=== PATIENT | female | born 1995 | race Caucasian/White ===

== ENCOUNTER 2017-01-06 09:53 | Emergency (ER) | payer OTHER ==
[~2017-01-06] VITALS: Ht 165.1 cm; Wt 65.3 kg
[~2017-01-06 09:53] MED LIST: ADDERALL 10 MG10 MG PO; AUGMENTIN 500-1 EACH PO; IBUPROFEN 600600 M1 PO; LAMICTAL XR25 MG; NOHOMEMEDICATIONS; ORAL CONTRACEPTIVE; WELLBUTRIN 75 M75 M1; ZIPRASIDONE HCL20 M1 PO
[2017-01-06 09:54] VITALS: BP 123/80
[2017-01-06] MEDS ORDERED: TRINATE TABLET1 TAB PO (09:58)
[2017-01-06] MEDS ORDERED: PHENERGAN 25 MG25 M1 PO (10:05)
[2017-01-06] MEDS ORDERED: REGLAN 10 MG TA10 MG PO (17:28)
[2017-01-06] MEDS ORDERED: APAP500 PO (17:28)
== END 2017-01-06 10:37 | disposition home or self-care (01) ==
LOC: ER 09:53
DX: G43.909 Migraine, unspecified, not intractable, without status migrainosus (principal); O26.891 Other specified pregnancy related conditions, first trimester; Z3A.08 8 weeks gestation of pregnancy

== ENCOUNTER 2017-01-06 15:35 | Emergency (ER) | payer OTHER ==
[~2017-01-06] VITALS: Ht 165.1 cm; Wt 60.8 kg
[~2017-01-06 15:35] MED LIST changes: +PHENERGAN 25 MG25 M1 PO; +TRINATE TABLET1 TAB PO
[2017-01-06] MEDS ORDERED: REGLAN 10 MG TA10 MG PO (17:28)
[2017-01-06] MEDS ORDERED: APAP500 PO (17:28)
[2017-01-06 17:29] LABS: AMP/METHAMP POSITIVE (Negative); BARBITURATES Negative (Negative); BENZODIAZEPINES Negative (Negative); COCAINE Negative (Negative); METHADONE Negative (Negative); OPIATES Negative (Negative); PCP Negative (Negative); THC Negative (Negative)
[2017-01-06 18:10] VITALS: BP 101/59
== END 2017-01-06 18:11 | disposition home or self-care (01) ==
LOC: ER 15:35
PROVIDERS: Emergency Medicine
DX: G43.909 Migraine, unspecified, not intractable, without status migrainosus (principal)

== ENCOUNTER 2018-05-18 10:42 | Emergency (ER) | payer OTHER ==
[~2018-05-18] VITALS: Ht 165.1 cm; Wt 63.5 kg
[~2018-05-18 10:42] MED LIST changes: +APAP500 PO; +REGLAN 10 MG TA10 MG PO
[2018-05-18] MEDS ORDERED: FLEXERIL PO (11:57)
[2018-05-18 12:53] VITALS: BP 100/59
== END 2018-05-18 12:45 | disposition home or self-care (01) ==
LOC: ER 10:42
DX: G44.209 Tension-type headache, unspecified, not intractable (principal); Z87.891 Personal history of nicotine dependence

== ENCOUNTER 2018-05-20 21:30 | Emergency (ER) | payer OTHER ==
[~2018-05-20] VITALS: Ht 162.6 cm; Wt 63.5 kg
[~2018-05-20 21:30] MED LIST changes: +FLEXERIL PO
[2018-05-20 21:57] LABS: URINE BILIRUBIN NEGATIVE (Negative); URINE BLOOD NEGATIVE (Negative); URINE CLARITY CLEAR; URINE COLOR YELLOW; URINE GLUCOSE-RANDOM* NEGATIVE (Negative); URINE KETONES NEGATIVE (Negative); URINE LEUKOCYTES-REFLEX NEGATIVE (Negative); URINE NITRITE-REFLEX NEGATIVE (Negative); URINE PROTEIN (DIPSTICK) NEGATIVE (Negative); URINE SPECIFIC GRAVITY >= 1.030 (1.005-1.035); URINE UROBILINOGEN 0.2 E.U./dl (0.2-1.0)
[2018-05-20 22:33] LABS: AMP/METHAMP POSITIVE (Negative); BARBITURATES Negative (Negative); BENZODIAZEPINES Negative (Negative); COCAINE Negative (Negative); METHADONE Negative (Negative); OPIATES Negative (Negative); PCP Negative (Negative)
[2018-05-20 22:39] LABS: ABSOLUTE NEUTROPHILS 6.4 thou/uL (1.4-8.2); BASOPHILS 0.4 % (0.0-2.0); EOSINOPHILS 2.3 % (0.0-3.0); HEMATOCRIT 37.2 % (37.0-47.0); HEMOGLOBIN 12.8 gm/dL (12.0-15.0); MCH 29.3 pg (26.0-34.0); MCHC 34.3 g/dL (28.0-37.0); MCV 85.4 fL (80.0-100.0); MONOCYTES 5.1 % (1.0-8.0); PLATELET COUNT 217 thou/uL (150-400); POLYS 69.2 % (36.0-66.0); RBC 4.36 mil/uL (4.20-5.00); RDW 13.8 % (10.5-14.5); WBC 9.3 thou/uL (4.0-11.0)
[2018-05-20 22:45] LABS: CALCIUM 9.3 mg/dL (8.5-10.1); CREATININE 0.6 mg/dL (0.6-1.0); POTASSIUM 3.2 mmol/L (3.5-5.1)
[2018-05-20] MEDS ORDERED: REGLAN 10 MG TA10 MG PO (23:11)
[2018-05-21 00:52] VITALS: BP 103/63
== END 2018-05-21 00:52 | disposition home or self-care (01) ==
LOC: ER 21:30
PROVIDERS: Physician Assistant
DX: R51 Headache (principal); F15.10 Other stimulant abuse, uncomplicated; Z87.891 Personal history of nicotine dependence

== ENCOUNTER 2018-11-05 08:49 | Emergency (ER) | payer OTHER ==
[~2018-11-05] VITALS: Ht 165.1 cm; Wt 72.6 kg
[2018-11-05] MEDS ORDERED: MEDROLDOSEPACK PO (10:31)
[2018-11-05 11:37] VITALS: BP 118/71
== END 2018-11-05 11:37 | disposition home or self-care (01) ==
LOC: ER 08:49
DX: O9A.219 Injury, poisoning and certain other consequences of external causes complicating pregnancy, unspecified trimester (principal); S86.912A Strain of unspecified muscle(s) and tendon(s) at lower leg level, left leg, initial encounter; Z87.891 Personal history of nicotine dependence; Z3A.00 Weeks of gestation of pregnancy not specified; X50.9XXA Other and unspecified overexertion or strenuous movements or postures, initial encounter; Y93.01 Activity, walking, marching and hiking; Y92.89 Other specified places as the place of occurrence of the external cause; Y99.8 Other external cause status

== ENCOUNTER 2019-11-06 12:19 | Emergency (ER) | payer OTHER ==
[~2019-11-06] VITALS: Ht 165.1 cm; Wt 81.2 kg
[~2019-11-06 12:19] MED LIST changes: +MEDROLDOSEPACK PO
[2019-11-06 13:48] VITALS: BP 104/59
== END 2019-11-06 13:50 | disposition home or self-care (01) ==
LOC: ER 12:19
DX: B34.9 Viral infection, unspecified (principal); Z87.891 Personal history of nicotine dependence; R07.89 Other chest pain

== ENCOUNTER 2021-05-13 14:44 | Emergency (ER) | payer OTHER ==
[~2021-05-13] VITALS: Ht 165.1 cm; Wt 81.7 kg
[2021-05-13 16:27] VITALS: BP 114/70
== END 2021-05-13 16:29 | disposition home or self-care (01) ==
LOC: ER 14:44
DX: S99.921A Unspecified injury of right foot, initial encounter (principal); F17.210 Nicotine dependence, cigarettes, uncomplicated; W10.9XXA Fall (on) (from) unspecified stairs and steps, initial encounter; Y93.89 Activity, other specified; Y92.89 Other specified places as the place of occurrence of the external cause; Y99.8 Other external cause status